=== PATIENT | female | born 1980 | race Two or more races ===

== ENCOUNTER 2024-09-11 07:45 | Outpatient (CLI) | payer MEDICAID, SELFPAY ==
[2024-09-08 11:05] LABS: Basophils % (Auto) 0 % (0-2.5); Eosinophils # (Auto) 0.1 Thou/mm3 (0.0-0.5); Eosinophils % (Auto) 1 % (0-10); Hematocrit 37.9 % (36.0-46.0); Hemoglobin 12.6 g/dL (12.0-16.0); Immature Granulocytes % (Auto) 0 % (0-0); Immature Granulocytes Auto 0.01 Thou/mm3 (0.00-0.00); Lymphocytes # (Auto) 1.2 Thou/mm3 (1.0-4.8); Lymphocytes % (Auto) 21 % (10-50); Mean Corpuscular HGB Conc 33.2 g/dl (31.0-37.0); Mean Corpuscular Hemoglobin 28.8 pg (25.0-35.0); Mean Corpuscular Volume 87 fL (80-100); Monocytes # (Auto) 0.5 Thou/mm3 (0.0-0.8); Monocytes % (Auto) 8 % (0-12); Neutrophils % (Auto) 70 % (37-80); Nucleated Red Blood Cell % 0 /100 WBC (0); Platelet Count 245 Thou/mm3 (140-440); RDW Standard Deviation 39.8 fL (36.4-46.3); Red Blood Count 4.37 Miln/mm3 (4.00-5.20); White Blood Count 5.7 Thou/mm3 (3.6-11.0)
[2024-09-08 11:19] LABS: HCG,Qualitative Serum Negative
[2024-09-08 11:20] LABS: Partial Thromboplastin Time 25.6 Seconds (22.0-36.0); Prothrombin Time 11.4 Seconds (9.0-12.2)
[2024-09-08 11:22] LABS: Blood Urea Nitrogen 8 mg/dL (9-23); Creatinine (Component) 0.8 mg/dL (0.6-1.3); eGFR > 60 See Note
[2024-09-11] VITALS (14 sets, daily range): BP systolic 106–144; BP diastolic 65–88; PULSE 58–65; RESP 13–23; TEMP 36.2–36.6; O2SAT 99–100; BMI 24.6
--- NOTE | 2024-09-11 08:30 | XR_ITS ---
Examination: CT abdomen with intravenous contrast. Coronal 2-D reconstructions. Sagittal 2-D reconstructions. Date and time of exam:September 11, 2024 0832 hours INDICATIONS: Liver disease, preop liver biopsy CTDI: vol (mGy): 5.60 DLP: (mGycm): 172 Technique: Axial images of the abdomen have been obtained, 3 mm slice thickness, 60 cc [id number] 2-D sagittal coronal reconstructions Low dose protocols were performed. One or more of the following dose reduction techniques were used; automated exposure control, adjustment of the mA and/or KV according to patient size, use of iterative reconstruction technique. Findings: Diffuse fatty infiltration throughout the liver No focal liver lesions No gallstones Spleen not enlarged No pancreatic edema Normal adrenal glands No renal or ureteral calculi, no hydronephrosis Aorta normal size No bowel obstruction 8mm fat-containing umbilical hernia Normal appendix No diverticulitis IMPRESSION: Diffuse fatty infiltration throughout the liver Negative for cholelithiasis
--- NOTE | 2024-09-11 08:30 | XR_ITS ---
Examination: CT-guided percutaneous liver biopsy CT abdomen without intravenous contrast Diagnosis primary hepatocellular disease, elevated liver function tests on laboratory examination this month Date and time of procedure: September 11, 2024 0916 hours Informed consent provided. A timeout was completed verifying correct patient, procedure, site and positioning. Technique: Axial 3 mm sections were obtained for localization of the right lobe the liver Appropriate area is marked. The patient's site was prepped and draped in sterile fashion Maximal sterile barrier technique utilized, including hand hygiene Local anesthesia was obtained with 1% lidocaine. Low dose protocols were performed. One or more of the following dose reduction techniques were used; automated exposure control, adjustment of the mA and/or KV according to patient size, use of iterative reconstruction technique. Utilizing CT fluoroscopic guidance 2 core biopsies of the right lobe the liver obtained Patient appears in stable condition during this procedure. At completion of the procedure, the patient is in satisfactory condition. Estimated blood loss 1 cc Complete pathology report to follow. Impression: Successful CT-guided percutaneous liver biopsies
[2024-09-11] MEDS: SODIUM CHLORIDE 0.9% 100 ML 20 ML IV (09:25)
[2024-09-11] MEDS: fentaNYL CIT INJ 50 mCg/ML AMP 2ML 75 MCG IVP (09:43)
--- NOTE | 2024-09-11 10:03 | PC.NURSE ---
1003 patient is awake, alert, breathing unlabored, s/p liver biopsy, dressing to right upper abdomen dry with no bleeding, patient to have stat chest xray now and 1hr recovery.
--- NOTE | 2024-09-11 10:07 | XR_ITS ---
Examination: AP chest single view Technique one AP upright portable chest single view Exam date and time: March 11, 2025 1019 hours INDICATIONS: Post liver biopsy today. FINDINGS: Normal heart size No pneumothorax The lungs are clear IMPRESSION: No pneumothorax
--- NOTE | 2024-09-11 10:17 | PC.NURSE ---
1017 chest xray completed
--- NOTE | 2024-09-11 10:41 | PC.NURSE ---
no pneumothorax seen on xray report
--- NOTE | 2024-09-11 13:59 | PC.NURSE ---
1123 patient is awake, alert, breathing unlabored, dressing dry with no bleeding, patient able to drink water with no nausea or vomiting, does not want to void at this time, discharge instructions given via metal trim erector, patient discharged home in wheelchair with all belongings.
== END 2024-09-11 11:23 | disposition home or self-care (01) ==
PROVIDERS: Radiology Diagnostic Radiology; Referring Provider Internal Medicine Gastroenterology; Visit Provider Internal Medicine Gastroenterology
DX: K73.8 Other chronic hepatitis, not elsewhere classified (principal); K76.0 Fatty (change of) liver, not elsewhere classified; Z01.812 Encounter for preprocedural laboratory examination
CPT/HCPCS: 47000; 36415; 74160; 77012; 82565; 84520; 84703; 85025; 85610; 85730; A4649; J3010; J7050; Q9967